=== PATIENT | female | born 1995 | race African-American/Black ===

== ENCOUNTER 2018-08-22 19:32 | Observation (INO) | payer MEDICAID ==
[2018-08-22] MEDS ORDERED: PNV1TABL76 MT (21:39)
== END 2018-08-22 21:50 | disposition home or self-care (01) ==
LOC: 8 EST LDRP 19:32
PROVIDERS: ADMIT Obstetrics & Gynecology; ATTEND Obstetrics & Gynecology
DX: O26.893 Other specified pregnancy related conditions, third trimester (principal); N89.8 Other specified noninflammatory disorders of vagina; R21 Rash and other nonspecific skin eruption; Z3A.36 36 weeks gestation of pregnancy
CPT/HCPCS: 99281; G0378

== ENCOUNTER 2021-05-03 02:20 | Emergency (ER) | payer MEDICAID ==
[~2021-05-03] VITALS: Ht 162.6 cm; Wt 68.0 kg
[~2021-05-03 02:20] MED LIST: PNV1TABL76 MT
[2021-05-03 02:55] VITALS: BP 115/55
[2021-05-03] MEDS ORDERED: CEFTRIAXONE SODIUM 500 MG/VIAL IM ONE (03:45)
[2021-05-03] MEDS ORDERED: LIDOCAINE HCL 1% 10 MG/ML 10ML VIAL IJ NR (03:45)
[2021-05-03] MEDS ORDERED: LIDOCAINE HCL/PF 1% 10 MG/ML 5ML VIAL INFIL ONE (03:45)
[2021-05-03] MEDS ORDERED: DOXYCYCLINE HYCLATE 100MG CAPSULE PO ONE (03:45)
[2021-05-03] MEDS ORDERED: DOXY-326 MT (04:06)
== END 2021-05-03 04:05 | disposition left against medical advice (07) ==
LOC: ER 02:20
DX: Z20.2 Contact with and (suspected) exposure to infections with a predominantly sexual mode of transmission (principal); F12.10 Cannabis abuse, uncomplicated
CPT/HCPCS: 81025; 96372; 99283; J0696; J3490; Z7610